=== PATIENT | female | born 1965 | race Caucasian/White ===

== ENCOUNTER 2024-02-29 14:31 | Emergency (ER) | payer MEDICAID, OTHER ==
[~2024-02-29] VITALS: Ht 152.4 cm; Wt 91.0 kg
[2024-02-29 14:44] VITALS: O2SAT 100
[2024-02-29 15:38] LABS: BASOPHILS % 0.5 % (0.0-2.0); EOSINOPHILS % 2.1 % (0.0-5.0); HEMATOCRIT. 35.3 % (36.0-48.0); HEMOGLOBIN. 11.7 g/dL (12.0-16.0); LYMPHOCYTES % 29.3 % (20.0-50.0); MEAN CORPUSCULAR HEMOGLOBIN 26.8 pg (28.0-32.0); MEAN CORPUSCULAR HGB CONC 33.1 g/dL (31.0-37.0); MONOCYTES % 6.2 % (2.0-8.0); NEUTROPHILS % 61.9 % (40.0-76.0); PLATELET 238 x1000/uL (130-400); RED BLOOD CELL COUNT 4.35 mill/uL (4.2-5.4); RED CELL DISTRIBUTION WIDTH 13.6 % (11.6-14.6); WHITE BLOOD COUNT 7.6 x1000/uL (4.5-11.0)
[2024-02-29 15:44] LABS: CHLORIDE 107 mEq/L (98-107); POTASSIUM 4.5 mEq/L (3.5-5.1); SODIUM 140 mEq/L (136-145)
[2024-02-29 15:45] LABS: CARBON DIOXIDE 29 mEq/L (21-32)
[2024-02-29 15:50] LABS: CREATININE 0.8 mg/dL (0.6-1.0); GLUCOSE 96 mg/dL (70-105); UREA NITROGEN BLOOD 13 mg/dL (9-23)
[2024-02-29] MEDS ORDERED: MUPI15CR11 TP (16:44)
[2024-02-29] MEDS ORDERED: IBUP-1523 MT (16:44)
[2024-02-29] MEDS ORDERED: TOPUD MT (16:44)
[2024-02-29 17:05] VITALS: BP 187/100; PULSE 63; RESP 18; TEMP 36.78072; O2SAT 98
== END 2024-02-29 17:06 | disposition home or self-care (01) ==
LOC: ER 14:38 → EDBEDREQ 15:40 → CANBEDREQ 16:46 → ER 17:06
DX: L03.115 Cellulitis of right lower limb (principal); Z98.890 Other specified postprocedural states
CPT/HCPCS: 80048; 85025; 36415; 93971; 71045; 99284; Z7610